=== PATIENT | female | born 1985 | race Caucasian/White ===

== ENCOUNTER 2019-02-09 03:19 | Inpatient (IN) | payer BC, OTHER ==
--- NOTE | 2019-02-03 06:03 | PCM.LDHP ---
L&D History of Present Illness - General Date of Service: 02/09/19 Admit Problem/Dx: Admission Diagnosis/Problem Admission Diagnosis/Problem 02/03/19 05:51 Brigida is a 33-year-old 2 para 1001 white female who is to be admitted for elective repeat section on 02/09/2018. Source of Information: Patient History Limitations: Reports: No Limitations - History of Present Illness Introduction:: Brigida is a 33-year-old 2 para 1001 white female who is to be admitted for elective repeat section on 02/09/2018.Her MARIA INES is 02/10/2019. MARIA INES was set by an early ultrasound done on 07/25/2018 by a second ultrasound on 2018. The procedure of repeat section, its risks, benefits, returns of care and follow-up were discussed in detail with patient. She appears to understand, wishes to proceed and has signed consent. [employer] WORK[employer] history: Patient is a 2 para 1001. Patient had menarche at age 13. Cycles every 28 days duration approximately 5 days. She is using no control time of conception. Last menstrual period was somewhat uncertain and started on 05/14/2018. Her past obstetric history includes a section done 02/13/2016 at 41-1/7 weeks gestational age after 12 hour labor. Baby was a male infant weighing 7 lbs. 4 oz. and was delivered by primary section done for failure to progress. She had an epidural for anesthesia. Child's name is Luciano. course: Patient was first seen for this on 07/25/2018 at which time ultrasound showed her to be 11-3/7 weeks gestational age. Weight gain during the course of was from 123.2 pounds to 159 pounds. Stable throughout the course and fundal height growth was appropriate. Declines STI testing. She plans on breast-feeding and supplementing. She underwent [place] noninvasive screening and this was negative for trisomy 21, 18 and 13. She has asthma and uses her proair inhaler when necessary. She has not used this often during the course of the . Immunizations include influenza immunization on 11/30/2018. At that same time she had her T dap Vaccination. She is rubella immune. Laboratory testing and shows blood to be AB+. Antibody screen is negative. Hemoglobin first visit was 14.2 g/dL. Platelets were 228, 000. She is rubella immune. Term was negative. Hepatitis B surface antigen was negative-negative. Second trimester hemoglobin was 13.0 g/dL. Platelets were 245 ,000. Diabetic screening test was normal at 102/dL. Group B strep screen was negative. Allergies: 1. Latex 2. Seasonal allergies Medications: 1. ProAir inhaler every 6 hours when necessary 2. loss iron tablets daily Past medical history: Unremarkable Past surgical history: 1. LASEK surgery 2. [place] teeth extraction 3. section 02/13/2016failure to progress Family history: Father is secondary to pneumonia at age 57. Mother is alive and well. Maternal grandmother in her 60s from colon cancer. Maternal grandfather with mesotheliomadeceased. Paternal grandmother secondary to bone cancer and possibly lung cancer. Paternal grandmother colon cancer diagnosed in her 60sis still alive. No bleeding, clotting, anesthesia or problems noted in the family. Social history: Patient is , is [place]. They live in [place]. 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 She does not use any significant loss of alcohol, drugs or tobacco. She is a college graduate. Review of systems: In general patient has no complaints. Babies been active. No significant contractions noted. Skin: Negative Lungs: No infectious symptoms or shortness of breath Cardiovascular: No chest pain or exercise intolerance Breasts: Changes associated with . GI: Negative : Body habitus changes associated with . Musculoskeletal: Negative Neurological: Negative In general the patient is well-developed, well-nourished, pleasant female of stated age in no acute distress. On last evaluation clinic her blood pressure 114/72 her weight was 159 pounds. weight 121.2 pounds. Pregravid body mass index is 21.3. heart rate was 147 BPM. Skin is warm dry without lesions. HEENT, neck and back within normal limits. Lungs are clear with good breath sounds in all lung dutta. Cardiovascular exam shows regular and rhythm without murmurs. Breast exam deferred having been done at first visit and normal. Abdomen is gravid with fundal height of 37.5 cm. Baby in vertex presentation. Genital exam declined by patient. Extremities and neurological exam are grossly within normal limits. - Related Data Allergies/Adverse Reactions: Allergies Allergy/AdvReac Type Severity Reaction Status Date / Time latex Allergy Rash Verified 02/13/16 08:25 Home Medications: Home Meds Acetaminophen/oxyCODONE [Percocet 325-5 MG] 1 tab PO Q6H PRN #25 tablet [Rx] Docusate Sodium [Colace] 100 mg PO Q12H PRN #0 cap 02/16/16 [Rx] Ibuprofen [IJD: Ibuprofen] 800 mg PO Q8H #30 tablet 02/16/16 [Rx] Past Medical History - Past Health History Medical/Surgical History: Denies Medical/Surgical History Psychiatric History: Reports: Suicide Attempt - Past Surgical History HEENT Surgical History: Reports: Oral Surgery Social & Family History - Family History Family Medical History: Noncontributory - Caffeine Use Caffeine Use: Reports: None H&P Review of Systems - Review of Systems: Review Of Systems: See Below L&D Exam - Exam Exam: See Below Problem List Initiated/Reviewed/Updated: Yes Assessment/Plan Comment:: 1. Scheduled elective repeat section on 02/09/2019 at 39-6/7 weeks gestational age with an MARIA INES of 02/10/2019. Procedure, risks, benefits, alternatives of care including attempted , follow-up are all discussed with patient. She appears understand, wishes to proceed and signed consent. 2. Patient plans to breast-feed but with some supplementation with formula. 3. Spinal for anesthesia. 4. Patient is rubella positive. 5. Patient has received her flu shot and her T dap immunization. 6. Latex sensitivity Plan: 1. Repeat lower uterine segment transverse section through Pfannenstiel skin incision under spinal block on 02/09/2019. 2. DVT prophylaxis with SCDs 3. Infection prophylaxis with Ancef 2 g IV preop 4. Support breast-feeding decision 5. Preoperative labs to include CBC, urinalysis, type and screen, RPR
[2019-02-09] MEDS ORDERED: Calcium Carbonate 500 MG Tab.Chew PO PRN (03:30)
[2019-02-09] MEDS ORDERED: ceFAZolin 2 GM in Premix Bag 1 BAG IV ONE (03:30)
[2019-02-09] MEDS ORDERED: Sodium Chloride 0.9% 10 ML Syringe FLUSH PRN (03:30)
[2019-02-09] MEDS ORDERED: Oxytocin/Lactated Ringers 20 UNIT/1,000 ML BAG IV SCH (03:30)
[2019-02-09] MEDS ORDERED: Nalbuphine 10 MG/ML Syringe IVPUSH PRN (03:30)
[2019-02-09] MEDS ORDERED: Citric Acid/Sodium Citrate Solution 30 ML Cup PO ONE (03:30)
[2019-02-09] MEDS ORDERED: Metoclopramide 10 MG/2 ML SDV IVPUSH ONE (03:30)
[2019-02-09] MEDS ORDERED: Lactated Ringers 1,000 ML IV SCH (03:30)
[2019-02-09] MEDS ORDERED: Citric Acid/Sodium Citrate Solution 30 ML Cup ONE (05:59)
[2019-02-09] MEDS ORDERED: Metoclopramide 10 MG/2 ML SDV ONE (05:59)
[2019-02-09] MEDS ORDERED: Bupivacaine 0.5% 30 ML SDV ONE (06:15)
[2019-02-09] MEDS ORDERED: Ketorolac 30 MG/ML SDV ONE (06:17)
[2019-02-09] MEDS ORDERED: ceFAZolin 1 GM Vial ONE (06:17)
[2019-02-09] MEDS ORDERED: Lactated Ringers 2,000 ML ONE (06:17)
[2019-02-09] MEDS ORDERED: Morphine PF 10 MG/10 ML SDV ONE (06:17)
[2019-02-09] MEDS ORDERED: Oxytocin 10 Units/1 ML SDV ONE (06:17)
[2019-02-09] MEDS ORDERED: Ondansetron 4 MG/2 ML SDV ONE (06:17)
[2019-02-09] MEDS ORDERED: fentaNYL 100 MCG/2 ML SDV ONE (07:12)
[2019-02-09] MEDS ORDERED: Phenylephrine/Normal Saline 100 MCG/ML 10 ML Syringe ONE (07:15)
[2019-02-09] MEDS ORDERED: ePHEDrine/Normal Saline 25 MG/5 ML Syringe ONE (07:25)
--- NOTE | 2019-02-09 07:51 | PCM.POSTAN ---
POST ANESTHESIA ASSESSMENT - MENTAL STATUS Mental Status: Alert, Oriented - VITAL SIGNS Vital Signs: Last Vital Signs Temp 36.8 C 02/09/19 03:30 Pulse 85 02/09/19 03:30 Resp 14 02/09/19 03:30 BP 124/82 02/09/19 03:30 Pulse Ox 96 02/09/19 03:30 0743 110/71 77 20 97% 97.4F - RESPIRATORY Respiratory Status: Respiratory Rate WNL, Airway Patent, O2 Saturation Stable - CARDIOVASCULAR CV Status: Pulse Rate WNL, Blood Pressure Stable - GASTROINTESTINAL GI Status: No Symptoms - PAIN Pain Score: 0 - POST OP HYDRATION Hydration Status: Adequate & Stable
[2019-02-09] MEDS ORDERED: fentaNYL 100 MCG/2 ML SDV IVPUSH PRN (07:52)
[2019-02-09] MEDS ORDERED: diphenhydrAMINE 50 MG/ML SDV IVPUSH PRN ×2 (07:52→10:54)
[2019-02-09] MEDS ORDERED: Ondansetron 4 MG/2 ML SDV IVPUSH PRN (07:52)
--- NOTE | 2019-02-09 07:53 | PCM.OPNOTE ---
- General Post-Op/Procedure Note Date of Surgery/Procedure: 02/09/19 Operative Procedure(s): Repeat lower uterine segment transverse section through Pfannenstiel skin incision Findings: Uterus tubes ovaries were within normal limits for a term . Baby in vertex presentation. Amniotic fluid clear but minimal in amount consistent with spontaneous rupture membranes history. Approximately 3-4 mm thick. No significant scarring otherwise noted. A be weighed 7 lbs. 1 oz. (3190 g) was born at 0712 hrs. on 02/09/2019 Apgars were 8 and 9. Pre Op Diagnosis: 39 week intrauterine , history of previous section with desire for repeat section Post-Op Diagnosis: Same with delivery of viable 7 lbs. 1 oz. (3190 g) male infant with Apgars of 8 and 9 at 0712 hrs. on 02/09/2019. Anesthesia Technique: Spinal Other Anesthesia Type: Marcaine 0.5%local20 mL total Primary Surgeon: Chance Fortune Secondary Surgeon: Ben Linares Anesthesia Provider: Lalitha Mishra [employer] Was Necessary: Retraction, assistance, patient safety, quality of care Fluid Replacement, Intraop: 2,000 Output, Urine Amount: 100 EBL in mLs: 700 Drain/Tube Comments:: Indwelling bladder catheter Complications: None Condition: Good Free Text/Narrative:: Intake & Output 02/08/19 02/09/19 02/09/19 22:59 06:59 14:59 Output Total 100 Balance -100 Surgery duration: 30 minutes Surgery duration: Procedure: The patient is appropriately consented. Patient was transferred to the room and placed in a sitting position. Spinal anesthesia was administered. After confirmation of adequate anesthesia patient was placed in a supine position with a wedge under her right side to facilitate left lateral positioning. The patient was prepped and draped in usual fashion after Cabezas catheter was already placed . The anesthetic was checked and found to be adequate. 20 mL of Marcaine 0.5% was injected locally in the Pfannenstiel incision site. The Pfannenstiel skin incision was then made and carried down through skin, subcutaneous and fascial layers. The fascia was then undermined superiorly and inferiorly to allow for adequate operating room. The recti muscles midline and preperitoneal fat was bluntly dissected. Peritoneal cavity was entered longitudinally. The vesicouterine peritoneum was then incised transversely and bladder flap was developed. Myometrium was incised transversely to the level of the amniotic sac. This incision was extended bilaterally in a blunt fashion. The amniotic sac was then ruptured resulting in a small amount of clear amniotic fluid. A hand is placed in the low uterine segment and the baby's head was brought forth through the incision. The baby was completely delivered using fundal pressure in a routine fashion. The nose and mouth were bulb suctioned. Baby's cord was clamped x2 cut and baby was handed off to attending gas appliance servicer Dr Hsieh. Placenta was expressed after cord blood was obtained. Uterus was then exteriorized to allow for easier closure. The cervix was assessed and found to be dilated adequately to allow egress of blood. The uterus was closed in 2 layers. The first layer a running locked suture of 0 Monocryl, the second layer a running locked vertical mattress suture of 0 Monocryl. [id number] suture was placed at mid incision and again at the right and the incision to control 2 bleeders. Hemostasis was confirmed at this time. Sponge instrument and needle counts are correct. The uterus was returned to the abdominal cavity and lateral gutters were cleared of blood. Once again sponge needle counts are correct. The anterior abdominal wall was closed with a #1 PDS suture from angle to angle. The subcutaneous area was found to be free of any bleeders. interrupted sutures of 3-0 Monocryl were used to reapproximate the subcutaneous layer.Skin was closed with a running subcuticular stitch of 3-0 Monocryl in a vertical mattress suture fashion using a Vasyl needle. Prineo mesh/glue was then applied to further approximate the incision. It should be noted that patient received 2 g of Ancef preoperatively for infection prophylaxis and had Pitocin infused after delivery of the placenta to facilitate uterine contraction. She also had sequential compression stockings in place for DVT prophylaxis. Patient was discharged from the operating room in satisfactory condition.
[2019-02-09] MEDS ORDERED: Naloxone 0.4 MG/ML SDV IVPUSH PRN (10:54)
[2019-02-09] MEDS ORDERED: Dextrose 5%-Lactated Ringers 1,000 ML IV SCH (10:54)
[2019-02-09] MEDS ORDERED: Ondansetron 4 MG/2 ML SDV IV PRN (10:54)
[2019-02-09] MEDS ORDERED: ePHEDrine 50 MG/ML SDV IVPUSH PRN (10:54)
[2019-02-09] MEDS ORDERED: Ketorolac 30 MG/ML SDV IVPUSH ONE (11:00)
[2019-02-09] MEDS: Simethicone 80 MG Tab.Chew PO SCH ×3 (11:06→19:31)
[2019-02-09] MEDS ORDERED: Ibuprofen 800 MG Tab PO SCH (13:30)
[2019-02-09] MEDS: Prenatal Multivitamin with Calcium/Folic Acid/Iron Tab PO SCH (15:39)
[2019-02-09] MEDS: Ibuprofen 800 MG Tab PO SCH (15:52)
[2019-02-10] MEDS: Simethicone 80 MG Tab.Chew PO SCH ×5 (00:08→20:59)
[2019-02-10] MEDS: Ibuprofen 800 MG Tab PO SCH ×3 (00:08→17:41)
--- NOTE | 2019-02-10 07:41 | PCM48HPAN ---
Post Anesthesia Note - EVALUATION WITHIN 48HRS OF ANESTHETIC Vital Signs in Normal Range: Yes Patient Participated in Evaluation: Yes Respiratory Function Stable: Yes Airway Patent: Yes Cardiovascular Function Stable: Yes Hydration Status Stable: Yes Pain Control Satisfactory: Yes Nausea and Vomiting Control Satisfactory: Yes Mental Status Recovered: Yes Vital Signs: Last Vital Signs Temp 36.4 C 02/10/19 02:13 Pulse 71 02/10/19 02:13 Resp 14 02/10/19 06:58 BP 104/64 02/10/19 02:13 Pulse Ox 99 02/10/19 06:58
[2019-02-10] MEDS: Prenatal Multivitamin with Calcium/Folic Acid/Iron Tab PO SCH (09:40)
--- NOTE | 2019-02-10 12:33 | PCM.SN ---
- Free Text/Narrative Note: note: Postoperative day one Patient is doing well in the period. Minimal lochia, voiding well, ambulated without problems. Nursing without concerns. Patient is afebrile, vital signs are stable Abdomen is flat, soft, uterus is below the umbilicus and is firm and nontender.Incision appears to be healing well. It is dry.Prineo mesh is intact. Legs are nontender. Assessment: recovery going well. Plan: Routine care. Patient be discharged home within the next 24-48 hours.
[2019-02-10] MEDS: Docusate Sodium 100 MG Cap PO PRN ×2 (17:43→20:54)
[2019-02-10] MEDS: Acetaminophen/oxyCODONE 325-5 MG Tab PO PRN (20:55)
[2019-02-11] MEDS: Ibuprofen 800 MG Tab PO SCH ×2 (01:44→13:46)
[2019-02-11] MEDS: Acetaminophen/oxyCODONE 325-5 MG Tab PO PRN ×2 (04:20→09:26)
[2019-02-11] MEDS: Simethicone 80 MG Tab.Chew PO SCH ×2 (09:25→13:45)
[2019-02-11] MEDS: Prenatal Multivitamin with Calcium/Folic Acid/Iron Tab PO SCH (09:25)
[2019-02-11 13:53] VITALS: BP 123/81; PULSE 64
== END 2019-02-11 14:52 | disposition home or self-care (01) | DRG 540 ==
LOC: JD.OB 03:19
PROVIDERS: ADMIT Obstetrics & Gynecology; ATTEND Obstetrics & Gynecology
PROC: 10D00Z1 Extraction of Products of Conception, Low, Open Approach (ICD-10-PCS; principal; 2019-02-09)
DX: O34.211 Maternal care for low transverse scar from previous cesarean delivery (principal); O99.52 Diseases of the respiratory system complicating childbirth; J45.909 Unspecified asthma, uncomplicated; Z91.040 Latex allergy status; Z91.09 Other allergy status, other than to drugs and biological substances; Z3A.39 39 weeks gestation of pregnancy; Z37.0 Single live birth
CPT/HCPCS: 01961; 36415; 59025; 85025; 86592; 86850; 86900; 86901; A9270-GY; J0690; J1200; J1885; J2270; J2370; J2405; J2590; J2765; J3010; J3490; J7050; J7120; J7121